=== PATIENT | female | born 1965 | race Caucasian/White ===

== ENCOUNTER 2021-06-26 11:56 | Emergency (ER) | payer MEDICAID ==
[~2021-06-26] VITALS: Ht 170.2 cm; Wt 72.6 kg
[2021-06-26 11:57] VITALS: BP 127/75
[2021-06-26] MEDS ORDERED: ONDANSETRON ODT 4MG TAB SL ONE (14:30)
[2021-06-26 14:50] LABS: BASOPHILS % (AUTO) 0.4 % (0.0-5.0); EOSINOPHILS % (AUTO) 1.2 % (0.0-8.0); HEMATOCRIT 38.9 % (36-48); LYMPHOCYTES % (AUTO) 17.9 % (21.0-51.0); MEAN CORPUSCULAR HEMOGLOBIN 30.2 pg (27.0-33.0); MEAN CORPUSCULAR HGB CONC 31.9 g/dL (32.0-36.0); MEAN CORPUSCULAR VOLUME 94.6 fL (79-99); MONOCYTES % (AUTO) 7.1 % (3.0-13.0); NEUTROPHILS % (AUTO) 73.1 % (40.0-77.0); PLATELET COUNT (AUTO) 240 K/uL (130-400); RED BLOOD CELL COUNT(AUTO) 4.11 MIL/uL (4.00-5.50); RED CELL DISTRIBUTION WIDTH 13.2 % (11.0-15.5)
[2021-06-26 15:04] LABS: CREATININE 0.9 mg/dL (0.5-1.5); POTASSIUM 3.7 mmol/L (3.5-5.1)
[2021-06-26 15:09] LABS: ALBUMIN 3.9 g/dL (3.5-5.0); BILIRUBIN,TOTAL 0.3 mg/dL (0.2-1.0); TOTAL PROTEIN, SERUM 7.3 g/dL (6.0-8.3)
[2021-06-26] MEDS ORDERED: DICY20TA2 PO (15:36)
[2021-06-26] MEDS ORDERED: ONDA4TAB10 PO (15:36)
== END 2021-06-26 15:59 | disposition home or self-care (01) ==
LOC: EDH 11:56
DX: A08.4 Viral intestinal infection, unspecified (principal); K43.9 Ventral hernia without obstruction or gangrene; Z20.822 Contact with and (suspected) exposure to COVID-19; F32.9 Major depressive disorder, single episode, unspecified
CPT/HCPCS: 36415; 74176; 80053; 83690; 84484; 85025; 87426; 93005

== ENCOUNTER 2021-06-26 17:25 | Emergency (ER) | payer MEDICAID ==
[~2021-06-26 17:25] MED LIST: DICY20TA2 PO; ONDA4TAB10 PO
[2021-06-26 17:30] VITALS: BP 124/78
== END 2021-06-26 18:52 | disposition home or self-care (01) ==
LOC: EDH 17:25
DX: Z20.822 Contact with and (suspected) exposure to COVID-19 (principal); Z79.899 Other long term (current) drug therapy
CPT/HCPCS: 87426